=== PATIENT | male | born 1940 | race Caucasian/White ===

== ENCOUNTER 2022-03-15 19:40 | Emergency (ER) | payer MEDICARE, BC ==
[~2022-03-15] VITALS: Ht 170.2 cm; Wt 82.6 kg
[~2022-03-15 19:40] MED LIST: ATORVASTATIN CA40 MG; DECADRON4 MG PO; DICLOFENAC-MIS1 EACH; DOXYCYCLINE HY100 MG PO; LISINOPRIL30 MG; MOBIC15 MG PO; MONTELUKAST SODI4 MG PO; VALTREX1000 MG PO; VITAMIN D21250 MCG PO
[2022-03-15] MEDS ORDERED: EZETIMIBE10 MG PO (20:10)
[2022-03-15] MEDS ORDERED: ATORVASTATIN CA80 MG PO (20:11)
[2022-03-15] MEDS ORDERED: LISINOPRIL40 MG PO (20:11)
== END 2022-03-15 20:39 | disposition home or self-care (01) ==
LOC: ED 19:40
DX: S61.211A Laceration without foreign body of left index finger without damage to nail, initial encounter (principal); I10 Essential (primary) hypertension; Z87.891 Personal history of nicotine dependence; Z79.899 Other long term (current) drug therapy; W29.3XXA Contact with powered garden and outdoor hand tools and machinery, initial encounter
CPT/HCPCS: 99282